=== PATIENT | male | born 1985 | race Caucasian/White ===

== ENCOUNTER 2020-06-02 02:12 | Inpatient (IN) | payer SELFPAY ==
[~2020-06-02] VITALS: Ht 185.4 cm; Wt 108.0 kg
[2020-06-02] MEDS ORDERED: ONDANSETRON 4MG ODT PO STA (03:07)
[2020-06-02] MEDS ORDERED: PANTOPRAZOLE SODIUM 40 MG/VIAL IV STA (04:40)
[2020-06-02] MEDS ORDERED: OCTREOTIDE ACETATE 50 MCG/ML 1ML IV STA (04:40)
[2020-06-02] MEDS ORDERED: ONDANSETRON HCL 4MG/2ML INJ IV STA (04:40)
[2020-06-02] MEDS ORDERED: OCTREOTIDE 1,000 MCG in SODIUM CHLORIDE 0.9% 100 ML IV STA (04:40)
[2020-06-02] MEDS ORDERED: SODIUM CHLORIDE 0.9% 1,000 ML IV ONE (04:45)
[2020-06-02] MEDS ORDERED: CEFTRIAXONE 1 G PREMIX 50 ML IV ONE (04:45)
[2020-06-02 04:47] LABS: BASOPHILS % 0.4 % (0.0-2.0); EOSINOPHILS % 0.3 % (0.0-5.0); HEMATOCRIT. 46.2 % (42.0-52.0); HEMOGLOBIN. 15.9 g/dL (14.0-18.0); LYMPHOCYTES % 32.3 % (20.0-50.0); MEAN CORPUSCULAR HEMOGLOBIN 32.5 pg (28.0-32.0); MEAN CORPUSCULAR VOLUME 94.2 fL (80.0-94.0); MEAN PLATELET VOLUME 8.4 fl (7.4-10.4); MONOCYTES % 7.3 % (2.0-8.0); NEUTROPHILS % 59.7 % (40.0-76.0); PLATELET 51 x1000/uL (130-400)
[2020-06-02 04:54] LABS: CHLORIDE 99 mEq/L (98-107)
[2020-06-02 05:09] LABS: INR 1.3; PARTIAL THROMBOPLASTIN TIME 27.4 sec (23.4-31.0); PROTHROMBIN TIME 13.1 sec (9.6-11.0)
[2020-06-02] MEDS ORDERED: OCTREOTIDE 1,000 MCG in SODIUM CHLORIDE 0.9% 98 ML IV SCH ×2 (06:15→15:00)
[2020-06-02] MEDS ORDERED: KCL 10MEQ/50ML PREMIX 50 ML IV SCH (12:45)
[2020-06-02] MEDS ORDERED: FOLIC ACID 1 MG, THIAMINE HCL 100 MG, MVI, ADULT NO.1 10 ML in DEXTROSE 5% WATER 1,000 ML IV SCH ×4 (13:00)
[2020-06-02] MEDS ORDERED: POTASSIUM CHLORIDE INJ 40 MEQ in DEXT 5% WATER 250 ML IV SCH (13:00)
[2020-06-02 14:59] LABS: CHLORIDE 101 mEq/L (98-107)
[2020-06-02 15:01] LABS: BASOPHILS % 0.2 % (0.0-2.0); HEMATOCRIT. 39.4 % (42.0-52.0); HEMOGLOBIN. 13.8 g/dL (14.0-18.0); LYMPHOCYTES % 10.1 % (20.0-50.0); MEAN CORPUSCULAR HEMOGLOBIN 33.1 pg (28.0-32.0); MEAN CORPUSCULAR VOLUME 94.7 fL (80.0-94.0); MONOCYTES % 3.6 % (2.0-8.0); NEUTROPHILS % 86.1 % (40.0-76.0); RED BLOOD CELL COUNT 4.16 mill/uL (4.7-6.1)
[2020-06-02 15:04] LABS: ETHANOL BLOOD 229 mg/dL
[2020-06-02 15:05] LABS: PLATELET 43 x1000/uL (130-400)
[2020-06-02 15:11] LABS: TOTAL IRON BINDING CAPACITY 271 ug/dL (250-450)
[2020-06-02] MEDS: PANTOPRAZOLE SODIUM 40 MG/VIAL IV SCH (15:45)
[2020-06-02] MEDS: CHLORDIAZEPOXIDE 5 MG CAPSULE PO SCH ×2 (16:12→21:05)
[2020-06-02 16:53] LABS: PLATELET ESTIMATE MARKEDLY DECREASED
[2020-06-02 17:12] LABS: *AMPHETAMINES SCREEN URINE NEGATIVE (NEGATIVE); *BARBITURATES SCREEN URINE NEGATIVE (NEGATIVE); *BENZODIAZEPINES SCREEN URINE NEGATIVE (NEGATIVE); *COCAINE SCREEN URINE NEGATIVE (NEGATIVE); METHADONE URINE SCREEN NEGATIVE (NEGATIVE); OPIATES URINE SCREEN NEGATIVE (NEGATIVE)
[2020-06-02 17:13] LABS: CANNABINOID URINE SCREEN NEGATIVE (NEGATIVE); PHENCYCLIDINE URINE SCREEN NEGATIVE (NEGATIVE)
[2020-06-02] MEDS: OCTREOTIDE 1,000 MCG in SODIUM CHLORIDE 0.9% 98 ML IV SCH (18:26)
[2020-06-02 20:30] VITALS: BP 133/97
[2020-06-02] MEDS: ONDANSETRON HCL 4MG/2ML INJ IV PRN (20:35)
[2020-06-02 21:00] VITALS: BP 133/97
[2020-06-02] MEDS ORDERED: PANTOPRAZOLE SODIUM 40 MG/VIAL IV SCH (21:00)
[2020-06-02] MEDS: ACETAMINOPHEN 325MG TABLET PO PRN (21:37)
[2020-06-03] VITALS (7 sets, daily range): BP systolic 126–140; BP diastolic 75–97
[2020-06-03] MEDS: ONDANSETRON HCL 4MG/2ML INJ IV PRN ×3 (04:14→23:15)
[2020-06-03] MEDS: PANTOPRAZOLE SODIUM 40 MG/VIAL IV SCH ×2 (04:21→09:07)
[2020-06-03] MEDS: ACETAMINOPHEN 325MG TABLET PO PRN (06:26)
[2020-06-03] MEDS: CHLORDIAZEPOXIDE 5 MG CAPSULE PO SCH ×3 (06:26→23:02)
[2020-06-03 07:11] LABS: CHLORIDE 102 mEq/L (98-107)
[2020-06-03 07:19] LABS: INR 1.4; PARTIAL THROMBOPLASTIN TIME 25.7 sec (23.4-31.0); PROTHROMBIN TIME 14.5 sec (9.6-11.0)
[2020-06-03 07:51] LABS: BASOPHILS % 0.6 % (0.0-2.0); EOSINOPHILS % 0.4 % (0.0-5.0); HEMATOCRIT. 35.4 % (42.0-52.0); HEMOGLOBIN. 12.4 g/dL (14.0-18.0); HEPATITIS B SURFACE ANTIGEN NEGATIVE; LYMPHOCYTES % 20.5 % (20.0-50.0); MEAN CORPUSCULAR HEMOGLOBIN 33.3 pg (28.0-32.0); MEAN CORPUSCULAR VOLUME 95.1 fL (80.0-94.0); MEAN PLATELET VOLUME 9.5 fl (7.4-10.4); MONOCYTES % 7.4 % (2.0-8.0); NEUTROPHILS % 71.1 % (40.0-76.0); RED BLOOD CELL COUNT 3.72 mill/uL (4.7-6.1); RED CELL DISTRIBUTION WIDTH 13.1 % (11.6-14.6)
[2020-06-03 07:55] LABS: PLATELET 30 x1000/uL (130-400)
[2020-06-03 08:21] LABS: HEPATITIS A AB IGM NEGATIVE (NEGATIVE)
[2020-06-03] MEDS: LORAZEPAM 2MG/ML CPJ IV PRN (10:26)
[2020-06-03] MEDS: OCTREOTIDE 1,000 MCG in SODIUM CHLORIDE 0.9% 98 ML IV SCH ×2 (11:30→15:58)
[2020-06-03] MEDS ORDERED: MAGNESIUM 2 G PREMIX 50 ML IV SCH (12:00)
[2020-06-03] MEDS ORDERED: PIPERACILLIN/TAZOBACTAM 3.375 G/VIAL IV SCH (14:00)
[2020-06-03] MEDS: SODIUM CHLORIDE 0.9% 1,000 ML IV SCH (14:30)
[2020-06-03] MEDS ORDERED: MEPERIDINE HCL/PF 25MG/ML CPJ IV PRN (14:30)
[2020-06-03] MEDS ORDERED: LABETALOL 5MG/ML SYR 20 MG/4 ML SYRINGE IV PRN (14:30)
[2020-06-03] MEDS ORDERED: ONDANSETRON HCL 4MG/2ML INJ IV PRN (14:30)
[2020-06-03] MEDS ORDERED: HYDROMORPHONE HCL/PF 2MG/ML CPJ IV PRN (14:30)
[2020-06-03] MEDS: VANCOMYCIN 2,000 MG in DEXT 5% WATER 500 ML IV NR ×2 (15:49→17:21)
[2020-06-03] MEDS: LACTULOSE 20G/30ML UDC PO SCH ×2 (15:49→23:15)
[2020-06-03] MEDS: PIPERACILLIN/TAZOBACTAM 3.375 G in DEXT 5% WATER 100 ML IV SCH ×2 (16:39→23:02)
[2020-06-03 18:15] LABS: HEMOGLOBIN 12.2 g/dL (14.0-18.0); MEAN CORPUSCULAR HEMOGLOBIN 33.2 pg (28.0-32.0); MEAN CORPUSCULAR VOLUME 95.3 fL (80.0-94.0); RED BLOOD CELL COUNT 3.68 mill/uL (4.7-6.1); RED CELL DISTRIBUTION WIDTH 13.3 % (11.6-14.6)
[2020-06-03 18:35] LABS: CHLORIDE 105 mEq/L (98-107)
[2020-06-03 19:28] LABS: PLATELET 41 x1000/uL (130-400)
[2020-06-03] MEDS: VANCOMYCIN 1250MG in DEXTROSE 5% WATER 250ML IV SCH (23:02)
[2020-06-04] VITALS: BP 155/92
[2020-06-04] MEDS: PANTOPRAZOLE SODIUM 40 MG/VIAL IV SCH ×3 (00:17→22:28)
[2020-06-04] MEDS: LORAZEPAM 2MG/ML CPJ IV PRN (00:17)
[2020-06-04 04:00] VITALS: BP 141/97
[2020-06-04] MEDS: LACTULOSE 20G/30ML UDC PO SCH ×3 (05:56→22:00)
[2020-06-04] MEDS: ONDANSETRON HCL 4MG/2ML INJ IV PRN (05:56)
[2020-06-04] MEDS: PIPERACILLIN/TAZOBACTAM 3.375 G in DEXT 5% WATER 100 ML IV SCH ×4 (05:57→21:05)
[2020-06-04] MEDS: CHLORDIAZEPOXIDE 5 MG CAPSULE PO SCH ×3 (05:57→21:05)
[2020-06-04] MEDS: VANCOMYCIN 1250MG in DEXTROSE 5% WATER 250ML IV SCH ×3 (05:58→22:38)
[2020-06-04] MEDS: SODIUM CHLORIDE 0.9% 1,000 ML IV SCH ×2 (06:07→15:30)
[2020-06-04 06:53] LABS: BASOPHILS % 0.4 % (0.0-2.0); EOSINOPHILS % 3.6 % (0.0-5.0); HEMATOCRIT. 34.6 % (42.0-52.0); HEMOGLOBIN. 12.2 g/dL (14.0-18.0); LYMPHOCYTES % 25.6 % (20.0-50.0); MEAN CORPUSCULAR HEMOGLOBIN 33.5 pg (28.0-32.0); MEAN PLATELET VOLUME 8.5 fl (7.4-10.4); MONOCYTES % 7.5 % (2.0-8.0); NEUTROPHILS % 62.9 % (40.0-76.0); RED BLOOD CELL COUNT 3.64 mill/uL (4.7-6.1); RED CELL DISTRIBUTION WIDTH 13.2 % (11.6-14.6)
[2020-06-04 07:37] LABS: CHLORIDE 101 mEq/L (98-107)
[2020-06-04 08:00] VITALS: BP 140/93
[2020-06-04 08:07] LABS: PLATELET 41 x1000/uL (130-400)
[2020-06-04] MEDS: RIFAXIMIN 550 MG TABLET PO SCH ×2 (09:15→21:05)
[2020-06-04] MEDS ORDERED: POTASSIUM CHLORIDE 20MEQ TABLET SR PO NR (11:00)
[2020-06-04 12:00] VITALS: BP 144/89
[2020-06-04] MEDS ORDERED: POTASSIUM CHLORIDE 20MEQ/PACKET PO NR (13:00)
[2020-06-04 16:00] VITALS: BP 136/87
[2020-06-04 20:00] VITALS: BP 147/92
[2020-06-04] MEDS ORDERED: METOPROLOL TARTRATE 50MG TABLET PO SCH (21:00)
[2020-06-04] MEDS: PROPRANOLOL HCL 10MG TABLET PO SCH (21:06)
[2020-06-05] MEDS: PIPERACILLIN/TAZOBACTAM 3.375 G in DEXT 5% WATER 100 ML IV SCH ×4 (02:20→20:00)
[2020-06-05 04:19] LABS: BASOPHILS % 0.7 % (0.0-2.0); EOSINOPHILS % 3.4 % (0.0-5.0); HEMATOCRIT. 37.9 % (42.0-52.0); HEMOGLOBIN. 13.1 g/dL (14.0-18.0); MEAN CORPUSCULAR HEMOGLOBIN 33.2 pg (28.0-32.0); MEAN CORPUSCULAR VOLUME 96.2 fL (80.0-94.0); MEAN PLATELET VOLUME 8.8 fl (7.4-10.4); NEUTROPHILS % 70.9 % (40.0-76.0); PLATELET 56 x1000/uL (130-400); RED BLOOD CELL COUNT 3.94 mill/uL (4.7-6.1); RED CELL DISTRIBUTION WIDTH 13.4 % (11.6-14.6)
[2020-06-05 04:27] LABS: CHLORIDE 105 mEq/L (98-107)
[2020-06-05 04:39] LABS: VANCOMYCIN TROUGH 14.1 ug/mL (5.0-10.0)
[2020-06-05] MEDS: LACTULOSE 20G/30ML UDC PO SCH ×3 (06:00→22:00)
[2020-06-05] MEDS: CHLORDIAZEPOXIDE 5 MG CAPSULE PO SCH ×3 (06:38→20:22)
[2020-06-05] MEDS: VANCOMYCIN 1250MG in DEXTROSE 5% WATER 250ML IV SCH (06:38)
[2020-06-05 08:00] VITALS: BP 144/95
[2020-06-05] MEDS ORDERED: PROPRANOLOL HCL 10MG TABLET PO SCH (09:00)
[2020-06-05] MEDS: PANTOPRAZOLE SODIUM 40 MG/VIAL IV SCH ×2 (09:13→20:32)
[2020-06-05] MEDS: RIFAXIMIN 550 MG TABLET PO SCH ×2 (09:13→20:22)
[2020-06-05] MEDS: PROPRANOLOL HCL 10MG TABLET PO SCH ×2 (09:16→20:22)
[2020-06-05 12:00] VITALS: BP 110/70
[2020-06-05] MEDS ORDERED: POTASSIUM CHLORIDE 20MEQ TABLET SR PO SCH (14:30)
[2020-06-05] MEDS: VANCOMYCIN 1500MG in DEXTROSE 5% WATER 250ML IV SCH ×2 (15:39→22:00)
[2020-06-05 16:00] VITALS: BP 124/78
[2020-06-05 16:16] VITALS: BP 110/70
[2020-06-05] MEDS ORDERED: SUCR1TAB MT (16:27)
[2020-06-05] MEDS ORDERED: OMEP40CA12 MT (16:27)
[2020-06-05] MEDS: SODIUM CHLORIDE 0.9% 1,000 ML IV SCH (17:22)
[2020-06-05 20:00] VITALS: BP 147/80
[2020-06-05] MEDS: ACETAMINOPHEN 325MG TABLET PO PRN (20:22)
[2020-06-06] VITALS: BP 128/87
[2020-06-06] MEDS: PIPERACILLIN/TAZOBACTAM 3.375 G in DEXT 5% WATER 100 ML IV SCH (02:00)
[2020-06-06 04:00] VITALS: BP 95/71
[2020-06-06] MEDS: SODIUM CHLORIDE 0.9% 1,000 ML IV SCH (05:00)
[2020-06-06] MEDS: LACTULOSE 20G/30ML UDC PO SCH (06:00)
[2020-06-06] MEDS: CHLORDIAZEPOXIDE 5 MG CAPSULE PO SCH (06:00)
[2020-06-06] MEDS: VANCOMYCIN 1500MG in DEXTROSE 5% WATER 250ML IV SCH (06:00)
[2020-06-06 06:29] LABS: BASOPHILS % 0.7 % (0.0-2.0); CHLORIDE 104 mEq/L (98-107); EOSINOPHILS % 3.5 % (0.0-5.0); HEMATOCRIT. 40.7 % (42.0-52.0); LYMPHOCYTES % 19.4 % (20.0-50.0); MEAN CORPUSCULAR HEMOGLOBIN 33.9 pg (28.0-32.0); MEAN CORPUSCULAR VOLUME 98.6 fL (80.0-94.0); MEAN PLATELET VOLUME 8.8 fl (7.4-10.4); MONOCYTES % 12.1 % (2.0-8.0); NEUTROPHILS % 64.3 % (40.0-76.0); PLATELET 53 x1000/uL (130-400); RED BLOOD CELL COUNT 4.13 mill/uL (4.7-6.1); RED CELL DISTRIBUTION WIDTH 13.6 % (11.6-14.6)
[2020-06-06 08:09] VITALS: BP 134/89
[2020-06-06 08:19] VITALS: BP 134/89
== END 2020-06-06 09:18 | disposition home or self-care (01) | DRG 720 ==
LOC: ER 02:12 → 6WST 07:11 → ENRESERV 17:13 → 6WST 21:18
PROVIDERS: ADMIT Internal Medicine; ATTEND Internal Medicine
PROC: 06L38CZ Occlusion of Esophageal Vein with Extraluminal Device, Via Natural or Artificial Opening Endoscopic (ICD-10-PCS; principal; 2020-06-03)
PROC: 30233R1 Transfusion of Nonautologous Platelets into Peripheral Vein, Percutaneous Approach (ICD-10-PCS; 2020-06-03)
DX: A41.9 Sepsis, unspecified organism (principal); D61.818 Other pancytopenia; D62 Acute posthemorrhagic anemia; D68.4 Acquired coagulation factor deficiency; D69.59 Other secondary thrombocytopenia; E66.9 Obesity, unspecified; E72.20 Disorder of urea cycle metabolism, unspecified; E83.42 Hypomagnesemia; E87.6 Hypokalemia; F10.20 Alcohol dependence, uncomplicated; I21.4 Non-ST elevation (NSTEMI) myocardial infarction; I85.11 Secondary esophageal varices with bleeding; K31.89 Other diseases of stomach and duodenum; K44.9 Diaphragmatic hernia without obstruction or gangrene; K70.0 Alcoholic fatty liver; K70.10 Alcoholic hepatitis without ascites; K70.30 Alcoholic cirrhosis of liver without ascites; K76.6 Portal hypertension; Y90.7 Blood alcohol level of 200-239 mg/100 ml; Z20.828 Contact with and (suspected) exposure to other viral communicable diseases; Z87.891 Personal history of nicotine dependence; Z68.31 Body mass index [BMI] 31.0-31.9, adult; Z79.899 Other long term (current) drug therapy
CPT/HCPCS: 36415; 71045; 76705; 80048; 80053; 80202; 80305; 80320; 82140; 82607; 82728; 82746; 83540; 83550; 83735; 83880; 84484; 85025; 85027; 85044; 86705; 86709; 86803; 86850; 86900; 87340; 87426; 93306; 99285; C9113; J0696; J1170; J2060; J2354; J2405; J2543; J3370; J3411; J3475; J3480; J3490; J7030; J7040; J7050; J7060; J7070; P9034; Q0162; G0480